=== PATIENT | female | born 1980 | race Caucasian/White ===

== ENCOUNTER 2017-03-28 14:00 | Inpatient (IN) | payer OTHER ==
--- NOTE | ~2017-03-28 | CO ---
Unit #: [id number] #: [id number] Patient: DIAMOND MURPHY [id number] [place] [address] [id number] MR#: [id number] NAME: DIAMOND MURPHY ROOM: P184 Age: 37 Sex: F Admission Date: 03/28/2017 : 1980 Attending Physician: Kapil aMrks M.D. Primary Care Physician: Primary Care Physician No Consultation Date: 03/29/2017 CONSULTATION REPORT HISTORY OF PRESENT ILLNESS Diamond is a 37-year-old female, admitted on 03/28/2017 to [facility]. She has complaints of blisters on both of her ankles. She reports that she was walking for 2 days, she is homeless and was wearing poorly-fitting shoes. The blisters are fluid filled and she does have some pain in them. She also had a rash on both of her legs, but that has resolved. She is no longer having any itching or redness. She is currently taking Augmentin. PHYSICAL EXAMINATION CARDIAC: Regular rate and rhythm. No murmurs, gallops, or rubs. RESPIRATORY: Clear to auscultation bilaterally. SKIN: Bilateral blisters on ankles are fluid filled. ASSESSMENT AND PLAN Blisters. There is no indication of bacterial infection. The patient was instructed to keep the area clean, dry, and try to keep skin intact as long as possible. She agrees with this and will monitor and notify if symptoms of infection are present. Dictated by... Siobhan Bond/esteban TD: 03/29/2017 17:11 JOB #: [id number] CONSULTATION REPORT Page 1 of 1 X KONRAD DICKSON APRN CONSULTATION REPORT
--- NOTE | ~2017-03-28 | DS ---
Unit #: [id number] #: [id number] Patient: HECTOR MURPHY [id number] [place] [address] [id number] MR#: [id number] NAME: HECTOR MURPHY ROOM: P184 Age: 37 Sex: F Admission Date: 03/28/2017 : 1980 Discharge Date: 03/31/2017 Attending Physician: Kapil Marks M.D. Primary Care Physician: Primary Care Physician No DISCHARGE SUMMARY REASON FOR ADMISSION The patient is a 37-year-old white female, admitted to the hospital with recurrent abuse of heroin and some paranoid thinking. HOSPITAL COURSE The patient was admitted to the [facility] unit and placed on routine detoxification protocol for opioids. She requested reinitiation of lamotrigine and it was restarted at a dose of 25 mg at h.s. Zydis was ordered on a p.r.n. basis for psychosis, but was never get required. By 03/31/2017, the patient was in bright spirits and exhibited no signs or symptoms of withdrawal. She requested discharge and was so ordered. FINAL DIAGNOSES Opioid use disorder; bipolar disorder, unspecified by history. DISPOSITION ON DISCHARGE The patient is discharged on the following medications: Lamotrigine 25 mg at bedtime with upper titration to 100 mg at bedtime per manufacture's directions. The patient will also be given a prescription for Augmentin 875 mg q.12 hours for 7-day course for an upper respiratory infection. DISCHARGE INSTRUCTIONS No dietary or physical restrictions were placed upon the patient at the time of discharge. FOLLOWUP Followup will take place through the auspices of community mental health resources. Dictated by... Kapil Marks M.D. CB/esteban TD: 03/31/2017 16:34 JOB #: [id number] Unit #: [id number] #: [id number] Patient: HECTOR MURPHY DISCHARGE SUMMARY Page 1 of 1 X Kapil Marks MD X DISCHARGE SUMMARY
--- NOTE | ~2017-03-28 | PA ---
Unit #: [id number] #: [id number] Patient: HECTOR MURPHY [id number] [facility] [address] [place] [address] [id number] Wilma MR#: [id number] NAME: HECTOR MURPHY ROOM: P184 Age: 37 Sex: F Admission Date: 03/28/2017 : 1980 Date of Assessment: 03/29/2017 Attending Physician: Kapil Marks M.D. Admitting Physician: Kapil Marks M.D. Primary Care Physician: Primary Care Physician No PSYCHIATRIC ASSESSMENT IDENTIFYING INFORMATION The patient is a 37-year-old white female admitted with increasing psychosis. INFORMANT(S) Chart, patient cannot be aroused for interview. CHIEF COMPLAINT None given HISTORY OF PRESENT ILLNESS The patient is a 37-year-old white female brought by family members who had felt as though she is becoming more paranoid. The patient is apparently homeless. She was last hospitalized at this facility in January of 2016 and at that time was diagnosed with bipolar disorder unspecified, opioid dependence and hepatitis C. Her medications at that time included Trileptal and Minipress. It is unclear whether the patient has actually been compliant with medications outside the hospital it appears as though she has not. The patient does have a history of opioid dependence but has seemed and continues to abuse opioids at this point. When seen today the patient is sleeping soundly and multiple attempts to arouse are unsuccessful. PAST PSYCHIATRIC HISTORY Reviewed no changes. PAST MEDICAL HISTORY Reviewed no changes MEDICATIONS Augmentin ALLERGIES Phenergan FAMILY HISTORY Reviewed no changes. SOCIAL HISTORY Reviewed no changes. MENTAL STATUS EXAMINATION At this time reveals the patient to be a soundly sleeping white female Unit #: [id number] #: [id number] Patient: HECTOR MURPHY multiple attempts to arouse are unsuccessful. ASSETS AND LIABILITIES ASSETS: To be assessed. LIABILITIES: Lack of resources. DIAGNOSTIC IMPRESSION 1. Bipolar disorder unspecified 2. Psychotic disorder unspecified. 3. Opioid use disorder. 4. Hepatitis C. TREATMENT PLAN The patient remains hospitalized for safety and stabilization. At this point we will continue Augmentin and I have added p.r.n. Zydis for psychosis pending a more thorough evaluation the patient's current symptomatology. ESTIMATED LENGTH OF STAY Five to seven days with followup to take place through the auspices of community mental health resources. Dictated by... Kapil Marks M.D. BOOM/danielle TD: 03/29/2017 22:39 JOB #: [id number] PSYCHIATRIC ASSESSMENT Page 1 of 1 X Kapil Marks MD X PSYCHIATRIC ASSESSMENT
--- NOTE | ~2017-03-28 | PN ---
Unit #: [id number] #: [id number] Patient: HECTOR MURPHY [id number] [facility] [address] [place] [address] [id number] I MR#: [id number] NAME: HECTOR MURPHY ROOM: P184 Age: 37 Sex: F Admission Date: 03/28/2017 : 1980 Attending Physician: Kapil Marks M.D. Admitting Physician: Kapil Marks M.D. Primary Care Physician: Primary Care Physician Bren BECKER PROGRESS NOTES DATE 03/30/2017 DISCUSSION The patient today admits to a recent relapse of heroin use as well as noncompliance with her prescribed psychotropic medication. She wishes to restart medications but has been off these medications for some time. We will go ahead and restart Lamictal at a dose of 25 mg at h.s. I have encouraged the patient to increase her participation within the therapeutic milieu. She is continuing to complain of significant discomfort related to opioid withdrawal. Dictated by... Kapil Marks M.D. CB/danielle TD: 03/31/2017 06:00 JOB #: [id number] EUGENIO SANTIAGO NOTES Page 1 of 1 X Kapil Marks MD PROGRESS NOTE
--- NOTE | ~2017-03-28 | HP ---
Unit #: [id number] #: [id number] Patient: DIAMOND MURPHY [id number] [place] [address] [id number] I MR#: [id number] NAME: DIAMOND MURPHY ROOM: P184 Age: 37 Sex: F Admission Date: 03/28/2017 : 1980 Attending Physician: Kapil Marks M.D. Admitting Physician: Kapil Marks M.D. Primary Care Physician: Primary Care Physician No HISTORY AND PHYSICAL HISTORY OF PRESENT ILLNESS Diamond is a 37-year-old female admitted to [facility] on 03/28/2017 for detox from heroin. PAST MEDICAL HISTORY Hepatitis C. PAST SURGICAL HISTORY Cholecystectomy SOCIAL HISTORY Smokes one pack of cigarettes daily. No alcohol use. Does report daily use of heroin. She is currently . FAMILY HISTORY Noncontributory. REVIEW OF SYSTEMS CONSTITUTIONAL: No fever or chills. HEENT: Denies any sore throat, ear pain or runny nose. CARDIOVASCULAR: Denies chest pain, irregular heart rhythm or palpitations. CHEST: Denies shortness of breath or cough. No hemoptysis. GASTROINTESTINAL: Denies nausea, vomiting, diarrhea or chronic constipation. ENDOCRINE: Denies history of increased thirst or urination. No recent significant weight loss or gain. GENITOURINARY: Denies dysuria, frequency, or hematuria. SKIN: Denies any rashes. HEMATOLOGIC: Denies history of increased bleeding or bruising. MUSCULOSKELETAL: Denies any hot, swollen joints. No generalized muscle pain. NEUROLOGIC: Denies problems with vision or speech. No frequent, severe headaches. No numbness, tingling or weakness in any extremities. Denies loss of bladder or bowel control. CURRENT MEDICATIONS Augmentin. ALLERGIES Phenergan. Unit #: [id number] #: [id number] Patient: DIAMOND MURPHY PHYSICAL EXAMINATION GENERAL: Alert, oriented, in no acute distress. VITAL SIGNS: Blood pressure 124/83, heart rate 101, respirations 20, temperature 98.9. HEIGHT: 5 foot 4 inches. WEIGHT: 156 pounds. SKIN: Warm and dry without rash or lesion. HEENT: Normocephalic. TMs not viewed. Oral and nasal passages clear. Conjunctivae clear. PERRLA. EOMs intact. NECK: Supple without lymphadenopathy or thyromegaly. HEART: Regular rate and rhythm without murmur. LUNGS: Clear. ABDOMEN: Soft, nontender, without masses or hepatosplenomegaly. : Not done. EXTREMITIES: No evidence of cyanosis, clubbing or edema. Moves all without focal deficit. NEUROLOGICAL: Grossly within normal limits. Cranial Nerves: II: Visual guy are intact. III, IV AND : Extraocular movements are intact. Pupils are equal, round and reactive to light. V: Facial sensation is grossly normal. VII: Facial movements and expression are normal. VIII: Auditory acuity grossly intact. IX, X: Uvula is midline. Phonation is normal. XI: Patient shrugs shoulders and turns head normally. XII: Tongue protrudes in the midline. Sensory and Motor Function: Sensory and motor sensation is grossly normal. Motor: moves all extremities well. Coordination: Gait is normal. Deep Tendon Reflexes: Intact. IMPRESSION Psychiatric admission. RECOMMENDATIONS Psychiatric, per psychiatrist. MEDICAL: I see no contraindications to participating in facility's activities. MEDICAL PROGNOSIS Good. MEDICAL CONDITION Stable. Dictated by... Sibohan Bond/danielle TD: 03/30/2017 00:50 JOB #: [id number] Unit #: [id number] #: [id number] Patient: DIAMOND MURPHY HISTORY AND PHYSICAL Page 1 of 1 X KONRAD DICKSON APRN X HISTORY AND PHYSICAL
[2017-03-29 12:33] LABS: BASOPHIL# 0.1 X10e3 (0-0.3); EOSINOPHIL# 0.3 X10e3 (0-0.7); EOSINOPHIL% 4.2 % (0.0-7.0); HEMATOCRIT 38.5 % (35.0-45.0); HEMOGLOBIN 12.4 gm/dL (12.0-16.0); LYMPHOCYTE% 31.7 % (17.0-45.0); MEAN CORPUSCULAR HEMOGLOBIN 28.7 PG (28-34); MEAN CORPUSCULAR HGB CONC 32.2 g/dL (30-36); MEAN PLATELET VOLUME 9.6 FL (6.5-11.5); MONOCYTE# 0.6 X10e3 (0-1.0); MONOCYTE% 9.7 % (3.0-12.0); NEUTROPHIL# 3.4 X10e3 (1.5-7.1); NEUTROPHIL% 53.4 % (40-75); PLATELET COUNT 306 X10e3 (140-420); RED BLOOD COUNT 4.33 X10e (3.90-5.30); RED CELL DISTRIBUTION WIDTH 14.9 % (11.0-15.5); WHITE BLOOD COUNT 6.3 X10e3 (4.0-10.5)
[2017-03-29 12:37] LABS: DIFF IND NO
[2017-03-29 12:49] LABS: ALBUMIN SERUM 3.4 g/dL (3.5-5.0); BILIRUBIN,TOTAL 1.1 mg/dL (0.2-2.0); BUN/CREATININE RATIO 6.25; CALCIUM SERUM 9.3 mg/dL (8.4-10.2); CREATININE SERUM 0.8 mg/dL (0.6-1.4); GLOM FILT RATE Estimated 93.6 mL/min (>60); POTASSIUM 3.4 mmol/L (3.5-5.1); PROTEIN TOTAL SERUM 6.4 g/dL (6.0-8.3)
[2017-04-01 09:31] LABS: URINE APPEARANCE CLOUDY; URINE BILIRUBIN NEG (NEG); URINE BLOOD NEG (NEG); URINE COLOR YELLOW; URINE GLUCOSE NEG (NEG); URINE KETONE NEG (NEG); URINE LEUKOCYTE ESTERASE 1+ (NEG); URINE NITRATE NEG (NEG); URINE PROTEIN NEG (NEG); URINE SPECIFIC GRAVITY 1.016 (1.003-1.035); URINE UROBILINOGEN 0.2 MG/DL (NEG)
[2017-04-01 09:35] LABS: URBCS1 AUWI 0-2 /[HPF] (0-2); URINE BACTERIA AUWI 1+ (NEGATIVE); URINE SQUAMOUS EPITHELIAL CELL MOD /[HPF]
[2017-04-01 10:46] LABS: URINE YEAST PRESENT
[2017-04-01 10:47] LABS: URINE CRYSTALS CALCIUM OXALATE /[HPF]
[2017-04-01 10:49] LABS: URINE MUCUS PRESENT
== END 2017-03-31 15:04 | DRG 885 ==
LOC: P1E 15:44
PROVIDERS: Specialist
PROC: HZ2ZZZZ Detoxification Services for Substance Abuse Treatment (ICD-10-PCS; principal; 2017-03-28)
DX: F31.9 Bipolar disorder, unspecified (principal); F11.23 Opioid dependence with withdrawal; B19.20 Unspecified viral hepatitis C without hepatic coma; F17.210 Nicotine dependence, cigarettes, uncomplicated
CPT/HCPCS: 80053; 81003; 84703; 85025; 86592